=== PATIENT | male | born 1985 | race Caucasian/White ===

== ENCOUNTER 2019-01-13 04:42 | Emergency (ER) | payer SELFPAY ==
[~2019-01-13] VITALS: Ht 175.3 cm; Wt 63.5 kg
[2019-01-13] MEDS ORDERED: fentaNYL INJECTION 100 MCG/2 ML AMP IVP PRN (05:15)
[2019-01-13] MEDS ORDERED: NS IV 1000 ML 1,000 ML IV SCH (05:15)
[2019-01-13] MEDS ORDERED: ONDANSETRON 4 MG/2 ML (SDV) Z0FRAN IVP ONE (05:15)
[2019-01-13] MEDS ORDERED: HOLD METFORMIN - RECEIVED CONTRAST 20 ML VIAL IV SCH (05:30)
[2019-01-13] MEDS ORDERED: NS 100 ML (IVPB) BAG IV ONE (05:30)
[2019-01-13] MEDS ORDERED: IOHEXOL 350 MG/ML 100 ML (OMNIPAQUE 350) VIAL IV ONE (05:30)
[2019-01-13 05:35] LABS: HEMOGLOBIN 14.5 G/DL (13.3-17.7); MEAN PLATELET VOLUME 10.2 FL (7.4-10.4); RED CELL DISTRIBUTION WIDTH 12.8 % (10.0-14.5); WHITE BLOOD COUNT 9.4 10^3/uL (4.3-11.0)
[2019-01-13 05:53] LABS: SODIUM 142 MMOL/L (135-145)
[2019-01-13 05:54] LABS: BUN/CREATININE RATIO 13; CALCIUM 8.8 MG/DL (8.5-10.1); CARBON DIOXIDE 22 MMOL/L (21-32); CHLORIDE 104 MMOL/L (98-107); CREATININE SERUM 0.84 MG/DL (0.60-1.30); GFR ESTIMATED > 60; GLUCOSE 98 MG/DL (70-105); POTASSIUM 4.1 MMOL/L (3.6-5.0)
[2019-01-13 07:05] VITALS: BP 108/54
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
== END 2019-01-13 07:05 | disposition home or self-care (01) ==
LOC: ER FS 04:45
DX: S06.0X9A Concussion with loss of consciousness of unspecified duration, initial encounter (principal); S01.511A Laceration without foreign body of lip, initial encounter; S10.93XA Contusion of unspecified part of neck, initial encounter; G40.909 Epilepsy, unspecified, not intractable, without status epilepticus; F17.210 Nicotine dependence, cigarettes, uncomplicated; Y04.0XXA Assault by unarmed brawl or fight, initial encounter
CPT/HCPCS: 36415; 70496; 70498; 80048; 85027; 96361; 96374; 96375

== ENCOUNTER 2020-10-19 04:32 | Emergency (ER) | payer OTHER ==
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
[2020-10-19 05:56] VITALS: BP 137/98
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
== END 2020-10-19 05:56 ==
LOC: EDUNIT# 04:32 → ER FS 04:35
DX: S16.1XXA Strain of muscle, fascia and tendon at neck level, initial encounter (principal); F10.129 Alcohol abuse with intoxication, unspecified; F17.210 Nicotine dependence, cigarettes, uncomplicated; V49.50XA Passenger injured in collision with unspecified motor vehicles in traffic accident, initial encounter
CPT/HCPCS: 70450; 72070; 72125

== ENCOUNTER 2020-12-06 14:32 | Emergency (ER) | payer SELFPAY ==
[2020-12-06] MEDS ORDERED: CYCLOBENZAPRINE 10 MG (FLEXERIL) TAB PO STA (14:58)
[2020-12-06] MEDS ORDERED: HYDROcodone/APAP 5 MG/325 MG (LORTAB) TAB PO STA (14:58)
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
--- NOTE | 2020-12-06 15:34 | Diagnostic Imaging Report ---
INDICATION: Pain. EXAMINATION: Two views of the left humerus were obtained. FINDINGS: The alignment is normal. There is no fracture or dislocation. Soft tissues are unremarkable. IMPRESSION: No focal abnormality in the left humerus. Dictated by: Dictated on workstation # [id number]
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
[2020-12-06] MEDS ORDERED: IBUP-1780 PO (16:19)
[2020-12-06] MEDS ORDERED: BACL10TA PO (16:19)
[2020-12-06] MEDS ORDERED: ACHD5005 PO (16:19)
[2020-12-06 16:28] VITALS: BP 135/85
== END 2020-12-06 16:31 | disposition home or self-care (01) ==
LOC: EDUNIT# 14:32 → ER FS 14:34
DX: S16.1XXA Strain of muscle, fascia and tendon at neck level, initial encounter (principal); S40.212A Abrasion of left shoulder, initial encounter; S00.01XA Abrasion of scalp, initial encounter; S80.212A Abrasion, left knee, initial encounter; S49.92XA Unspecified injury of left shoulder and upper arm, initial encounter; R40.2410 Glasgow coma scale score 13-15, unspecified time; F17.210 Nicotine dependence, cigarettes, uncomplicated; V86.99XA Unspecified occupant of other special all-terrain or other off-road motor vehicle injured in nontraffic accident, initial encounter
CPT/HCPCS: 70450; 71045; 72125; 73030; 73060; 99283; A4565

== ENCOUNTER 2020-12-21 23:54 | Emergency (ER) | payer SELFPAY ==
[~2020-12-21] VITALS: Ht 175.3 cm; Wt 61.2 kg
[~2020-12-21 23:54] MED LIST: ACHD5005 PO; BACL10TA PO; IBUP-1780 PO
[2020-12-22 00:05] VITALS: BP 123/84
[2020-12-22] MEDS ORDERED: SULF1TAB35 PO (00:17)
[2020-12-22] MEDS ORDERED: IBUP-1780 PO (00:17)
[2020-12-22] MEDS ORDERED: TRIM/SULFAMETH 160/800 (SEPTRA DS) TAB PO ONE ×2 (00:21→00:30)
--- NOTE | 2020-12-22 00:21 | ED Integumentary General ---
General Chief Complaint: Skin/Wound Problems Stated Complaint: RIGHT KNEE PAIN History of Present Illness Date Seen by Provider: Dec 22, 2020 Time Seen by Provider: 12:10 Initial Comments 35 y/o male presents with redness and swelling of his right kneecap. Thinks he was bitten by something, never sought or felt that. Redness developing over 2 days with some mild swelling. Patient states he does not have a primary care provider as he does not want to go see doctors. Tells nurse he takes baclofen and hydrocodone daily. Allergies and Home Medications Allergies Coded Allergies: No Known Drug Allergies (Unverified , 01/13/19) Home Medications Baclofen 10 Mg Tablet, 10 MG PO TID PRN for MUSCLE SPASMS Prescribed by: JARETT HIGGINS on 12/06/20 1619 Hydrocodone/Acetaminophen 1 Each Tablet, 1 TAB PO Q4H PRN for PAIN-SEVERE (8-10) Prescribed by: JARETT HIGGINS on 12/06/20 1620 Ibuprofen 800 Mg Tablet, 800 MG PO Q8H PRN for PAIN Prescribed by: JARETT HIGGINS on 12/06/20 1619 Patient Home Medication List Home Medication List Reviewed: Yes Review of Systems Review of Systems Constitutional: No chills, No fever, No malaise, No weakness Respiratory: No cough, No short of breath Cardiovascular: No chest pain, No edema Skin: see HPI, change in color; No pruritus, No rash Past Rfzrrre-Fhhqcl-Lkhyrd Hx Past Med/Social Hx: Reviewed Nursing Past Med/Soc Hx Patient Social History Alcohol Beverage of Choice: Beer Drug of Choice: marijuana daily Type Used: Cigarettes 2nd Hand Smoke Exposure: Yes Recent Hopitalizations: No Seasonal Allergies Seasonal Allergies: No Past Medical History Surgeries: Yes (Hand Surgery) Respiratory: No Cardiac: Yes Palpitations Neurological: Yes Seizure Disorder Genitourinary: No Gastrointestinal: No Musculoskeletal: No Endocrine: No HEENT: No Cancer: No Psychosocial: No Blood Disorders: No Physical Exam Vital Signs Capillary Refill : General Appearance: WD/WN, no apparent distress Extremities: no pedal edema, no calf tenderness, other (erythema and induration R Knee, lateral to patella. NO abscess or open wound. NOn-fluctuant ) Skin: No ecchymosis, No rash Departure Impression Primary Impression: Insect bite Qualified Codes: W57.XXXA - Bitten or stung by nonvenomous insect and other nonvenomous arthropods, initial encounter Disposition: 01 HOME, SELF-CARE Condition: Stable Departure-Patient Inst. Decision time for Depature: 00:16 Referrals: [facility],LOCAL PHYSICIAN (PCP) Primary Care Physician Patient Instructions: Insect Bites and Stings ED Add. Discharge Instructions: Since you do not have a Primary Care doctor, call the [facility] tomorrow morning to schedule a follow up examination of your bug bite infection in 2 to 3 days All discharge instructions reviewed with patient and/or family. Voiced understanding. Scripts Ibuprofen (Ibuprofen) 800 Mg Tablet 800 MG PO Q8H PRN for PAIN, #20 TAB 0 Refills Prov: BRIANA DUARTE DO 12/22/20 Sulfamethoxazole/Trimethoprim (Bactrim Ds Tablet) 1 Each Tablet 1 EACH PO BID, #14 TAB 0 Refills Prov: BRIANA DUARTE DO 12/22/20 BRIANA DUARTE DO Dec 22, 2020 00:21
== END 2020-12-22 00:26 | disposition home or self-care (01) ==
LOC: EDUNIT# 23:54 → ER FS 23:58
DX: S80.261A Insect bite (nonvenomous), right knee, initial encounter (principal); Z77.22 Contact with and (suspected) exposure to environmental tobacco smoke (acute) (chronic); W57.XXXA Bitten or stung by nonvenomous insect and other nonvenomous arthropods, initial encounter
CPT/HCPCS: 99283

== ENCOUNTER 2020-12-25 23:13 | Emergency (ER) | payer SELFPAY ==
[~2020-12-25] VITALS: Ht 175.3 cm; Wt 63.6 kg
[~2020-12-25 23:13] MED LIST changes: +SULF1TAB35 PO
[2020-12-26] MEDS ORDERED: LIDOCAINE 1% INJ 20 ML 20 ML VIAL INJ ONE (00:15)
--- NOTE | 2020-12-26 00:53 | ED Integumentary General ---
General Chief Complaint: Bite-Animal/Human/Insect Stated Complaint: SPIDER BITE 12-20-20 Nursing Triage Note: AMBULATES TO TRIAGE W/CO SPIDER BITE TO R KNEE. STATES HE WAS BITTEN BY A SPIDER HE BELIEVES WAS A BROWN RECLUSE ON 12/20/20. STATES PROGRESSION OF REDNESS, SWELLING, PAIN, AND DRAINAGE. STATES HE HAS BEEN PRESCRIBED MULTIPLE ABX BY MULTIPLE PROVIDERS WITH NO IMPROVEMENT OF WOUND. History of Present Illness Date Seen by Provider: Dec 25, 2020 Time Seen by Provider: 23:48 Initial Comments Patient is a 35-year-old male who presents to the emergency department with a chief complaint of what he believes was a brown recluse spider bite to his right knee. Patient states that he got bit he believes on December 20. He states he has had 2 previous visits for increased swelling pain and drainage from the knee. Patient states that he went to [place] emergency department and was prescribed some antibiotics. He states then he went to [facility] and they opened it up but it did not continue to drain it continued to swell and he has pain. Patient was given Bactrim, clindamycin, ibuprofen and meloxicam. None of which he states is helping. When he presents the knee is warm swollen with an effusion and palpable fluctuance over the area of the bite. He denies any fevers, chills, nausea vomiting. He states he just has significant pain in his right knee. All other review of systems reviewed and negative except as stated. Timing/Duration: week, getting worse Severity: severe Location: extremities (Right knee) Possible Cause: insect bite Associated Symptoms: other (Pain to the right knee) Allergies and Home Medications Allergies Coded Allergies: No Known Drug Allergies (Unverified , 01/13/19) Home Medications Baclofen 10 Mg Tablet, 10 MG PO TID PRN for MUSCLE SPASMS Prescribed by: JARETT PIKERT on 12/06/20 1619 Hydrocodone/Acetaminophen 1 Each Tablet, 1 TAB PO Q4H PRN for PAIN-SEVERE (8-10) Prescribed by: JARETT HIGGINS on 12/06/20 1620 Ibuprofen 800 Mg Tablet, 800 MG PO Q8H PRN for PAIN Prescribed by: JARETT Jose ENYART on 12/06/20 1619 Ibuprofen 800 Mg Tablet, 800 MG PO Q8H PRN for PAIN Prescribed by: BRIANA DUARTE on 12/22/2016 Sulfamethoxazole/Trimethoprim 1 Each Tablet, 1 EACH PO BID Prescribed by: BRIANA Dagmar ELAINAVENSTINE on 12/22/2016 Patient Home Medication List Home Medication List Reviewed: Yes Review of Systems Review of Systems Constitutional: see HPI EENTM: no symptoms reported Respiratory: no symptoms reported Cardiovascular: no symptoms reported Gastrointestinal: no symptoms reported Genitourinary: no symptoms reported Musculoskeletal: joint pain (Right knee) Skin: other (Abscess) All Other Systems Reviewed Negative Unless Noted: Yes Past Kdvcokc-Viqyhr-Gybgso Hx Patient Social History Tobacco Use?: Yes Tobacco type used: Cigarettes Smoking Status: Current Everyday Smoker Substance use?: Yes Substance type: Marijuana Alcohol type: Beer Pt feels they are or have been: No Seasonal Allergies Seasonal Allergies: No Past Medical History Surgeries: Yes (Hand Surgery) Respiratory: No Cardiac: Yes Palpitations Neurological: Yes Seizure Disorder Genitourinary: No Gastrointestinal: No Musculoskeletal: No Endocrine: No HEENT: No Cancer: No Psychosocial: No Blood Disorders: No Physical Exam Vital Signs Vital Signs - First Documented 12/25/20 23:30 Temp 36.6 Pulse 89 Resp 18 B/P (MAP) 119/77 (91) Pulse Ox 99 O2 Delivery Room Air Capillary Refill : Less Than 3 Seconds General Appearance: WD/WN, no apparent distress Cardiovascular: regular rate, rhythm Respiratory: lungs clear, normal breath sounds, no respiratory distress, no accessory muscle use Gastrointestinal: non tender, soft Extremities: normal range of motion, other (Patient has an area of what appears to be a "bite" to the upper lateral portion of his right knee. There is some central drainage that is minimal. It is quite fluctuant to touch. Surrounding erythema with no proximal lymphangitic streaking. Very warm to the touch. Patient has adequate range of motion in his right knee. I do not suspect septic joint.) Neurologic/Psychiatric: alert, normal mood/affect, oriented x 3 Skin: normal color, warm/dry Procedures/Interventions I&D : Site: right knee Blade Size: 11 I & D Procedure: betadine prep Packing/Drain: Plain Packing 1/2 (1/4 inch) Progress Copious amounts of pus drained from the abscess. Copiously irrigated with saline solution. Progress/Results/Core Measures Results/Orders My Orders Orders - TRISTEN SARKAR MD Lidocaine 1% Inj 20 Ml (Xylocaine 1% Inj (12/26/20 00:15) Rx-Hydrocodone/Apap 5-325 Mg (Rx-Vicodin (12/26/20 01:00) Medications Given in ED Current Medications Medications Dose Ordered Sig/David Route Start Time Stop Time Status Last Admin Dose Admin Acetaminophen/ Hydrocodone Bitart 1 ea Q6H PRN PO 12/26/20 01:00 12/26/20 01:07 DC 12/26/20 00:57 1 EA Lidocaine HCl 20 ml ONCE ONCE INJ 12/26/20 00:15 12/26/20 00:16 DC 12/26/20 00:40 20 ML Vital Signs/I&O 12/25/20 23:30 Temp 36.6 Pulse 89 Resp 18 B/P (MAP) 119/77 (91) Pulse Ox 99 O2 Delivery Room Air Blood Pressure Mean: 91 Progress Progress Note : Time: 00:50 Progress Note Wound was prepped with Betadine and local anesthetic with 1% lidocaine, 3 to 4 cc. #11 blade was used to incise over the abscess with return of copious amounts of pus.. Wound was copiously irrigated with saline. Packed with quarter inch plain gauze. Patient tolerated the procedure well. We will send him home with 4 hydrocodone tablets. I have advised him to continue the Bactrim and clindamycin. He can also continue the meloxicam as needed for pain. Ice packs to the right knee. Recheck in 48 hours, on Tuesday here in the emergency department for wound repack. Patient verbalizes understanding. All questions are sought and answered. He is stable for discharge. Departure Impression Primary Impression: Abscess of right knee Disposition: HOME, SELF-CARE Condition: Stable Departure-Patient Inst. Decision time for Depature: 00:52 Referrals: [facility] [place],LOCAL PHYSICIAN (PCP) Primary Care Physician Patient Instructions: Skin Abscess Add. Discharge Instructions: Keep the wound clean dry and covered. Do not pull out the packing. You need to come back to the emergency department on Tuesday to have a wound reevaluation, the packing removed and replaced. You can take the dressing off and bathe with the packing in place. Continue your antibiotics, both the Bactrim and the clindamycin. Continue the meloxicam daily for pain. Ice packs to the right knee as needed for pain as well. I have given you some hydrocodone tonight for pain. Take 1 as needed for severe pain. Return to the emergency department sooner for any fevers, chills, worsening knee pain or drainage or any other emergent concerning symptoms. TRISTEN SARKAR MD Dec 26, 2020 00:53
[2020-12-26 01:05] VITALS: BP 132/82
== END 2020-12-26 01:05 | disposition home or self-care (01) ==
LOC: EDUNIT# 23:13 → ER 23:16
DX: L02.415 Cutaneous abscess of right lower limb (principal); F17.210 Nicotine dependence, cigarettes, uncomplicated